=== PATIENT | female | born 1995 | race Caucasian/White ===

== ENCOUNTER 2016-09-19 19:20 | Emergency (ER) | payer BC, MEDICARE ==
[~2016-09-19 19:20] MED LIST: DOCUSATE SODIU100 MG PO
== END 2016-09-19 20:28 | disposition left against medical advice (07) ==
LOC: ER1 19:20
DX: Z53.21 Procedure and treatment not carried out due to patient leaving prior to being seen by health care provider (principal)

== ENCOUNTER 2021-12-28 17:39 | Outpatient (CLI) | payer BC, OTHER ==
[~2021-12-28] VITALS: Ht 162.6 cm; Wt 115.7 kg
[2021-12-28] MEDS ORDERED: PRENATAL VITAM1 EAC3 PO (18:27)
[2021-12-28 18:31] LABS: HEMOGLOBIN 11.2 gm/dl (12.3-15.3); RED BLOOD COUNT 4.24 M/UL (4.00-5.10); WHITE BLOOD COUNT 12.8 K/UL (4.5-11.0)
[2021-12-28 19:05] LABS: BUN/CREATININE RATIO 14 (0-10)
== END 2021-12-28 19:57 | disposition home or self-care (01) ==
LOC: GENOP 17:39
PROVIDERS: Obstetrics & Gynecology
DX: O13.3 Gestational [pregnancy-induced] hypertension without significant proteinuria, third trimester (principal); Z3A.36 36 weeks gestation of pregnancy
CPT/HCPCS: 80053; 81001; 82570; 83615; 84156; 84550; 85025

== ENCOUNTER 2022-01-04 05:28 | Inpatient (IN) | payer BC ==
[~2022-01-04] VITALS: Ht 162.6 cm; Wt 113.9 kg
[~2022-01-04 05:28] MED LIST changes: +PRENATAL VITAM1 EAC3 PO
[2022-01-04 06:07] LABS: HEMOGLOBIN 11.1 gm/dl (12.3-15.3); RED BLOOD COUNT 4.21 M/UL (4.00-5.10); WHITE BLOOD COUNT 13.8 K/UL (4.5-11.0)
[2022-01-04] MEDS ORDERED: PERCOCET 5/325 T1 EA PO (09:48)
[2022-01-04] MEDS ORDERED: COLACE100 MG PO (09:48)
[2022-01-04] MEDS ORDERED: BACTRIM DS TAB1 EACH PO (09:48)
[2022-01-04] MEDS ORDERED: IBUPROFEN800 MG PO (09:48)
[2022-01-04] MEDS ORDERED: HEMOCYTE324 MG PO (09:48)
[2022-01-05 07:03] LABS: HEMOGLOBIN 9.8 gm/dl (12.3-15.3)
[2022-01-05] MEDS ORDERED: MAPAP500 MG PO (11:11)
== END 2022-01-05 15:06 | disposition home or self-care (01) | DRG 787 ==
LOC: OB 05:28
PROVIDERS: ADMIT Obstetrics & Gynecology
PROC: 0DNW0ZZ Release Peritoneum, Open Approach (ICD-10-PCS; 2022-01-04)
PROC: 10D00Z1 Extraction of Products of Conception, Low, Open Approach (ICD-10-PCS; principal; 2022-01-04 07:30)
DX: O13.4 Gestational [pregnancy-induced] hypertension without significant proteinuria, complicating childbirth (principal); N39.0 Urinary tract infection, site not specified; O36.63X0 Maternal care for excessive fetal growth, third trimester, not applicable or unspecified; O99.214 Obesity complicating childbirth; O99.344 Other mental disorders complicating childbirth; F32.A Depression, unspecified; F41.9 Anxiety disorder, unspecified; O86.20 Urinary tract infection following delivery, unspecified; E66.9 Obesity, unspecified; Z37.0 Single live birth; Z88.0 Allergy status to penicillin; Z90.49 Acquired absence of other specified parts of digestive tract; Z98.890 Other specified postprocedural states; Z82.49 Family history of ischemic heart disease and other diseases of the circulatory system; Z83.3 Family history of diabetes mellitus
CPT/HCPCS: 36415; 81001; 82800; 85014; 85018; 85025; C9113; J1170; J1580; J1885; J2370; J2405; J2550; J2590; J2704; J2795